=== PATIENT | female | born 1975 | race Two or more races ===

== ENCOUNTER 2020-06-15 19:14 | Emergency (ER) | payer MEDICAID ==
[2020-06-15] MEDS: Sodium Chloride 0.9% 10 ML Syringe FLUSH PRN (20:00)
[2020-06-15] MEDS: Sodium Chloride 0.9% 1,000 ML IV ONE (20:30)
--- NOTE | 2020-06-15 20:32 | EDM.PDOC ---
ED HPI GENERAL MEDICAL PROBLEM - General Stated Complaint: DIZZINESS Time Seen by Provider: 06/15/20 19:59 Source of Information: Reports: Patient History Limitations: Reports: No Limitations - History of Present Illness INITIAL COMMENTS - FREE TEXT/NARRATIVE: Patient presents with lightheadedness and heavy menstrual bleeding. She says it started 11 hours ago and she has saturated a tampon and a pad every hour since then; at least 10 so far. She is not on any blood thinners or anti-platelets. She has had prolonged menstrual bleeding previously and is scheduled for a hysterectomy in July at [facility]. She has never had acute heavy bleeding like today. She admits her fluid intake has been poor recently. She had a PE 12 years ago after a knee injury that left her mostly off her feet for 7 months. No problems since then. She was tested for clotting disorders but nothing found. - Related Data Allergies Allergy/AdvReac Type Severity Reaction Status Date / Time metoclopramide [From Reglan] Allergy Cannot Verified 06/15/20 20:34 Remember morphine Allergy Cannot Verified 06/15/20 20:34 Remember tetanus and diphtheria Allergy Cannot Verified 06/15/20 20:39 toxoids Remember tuberculin, purified protein Allergy Cannot Verified 06/15/20 20:39 deriva Remember ED ROS GENERAL - Review of Systems Review Of Systems: See Below Constitutional: Denies: Fever, Chills, Malaise, Weakness HEENT: Denies: Ear Pain, Throat Pain, Vision Change Respiratory: Denies: Shortness of Breath, Cough Cardiovascular: Reports: Lightheadedness. Denies: Chest Pain, Syncope Endocrine: Reports: Other (diabetes) GI/Abdominal: Denies: Abdominal Pain, Diarrhea, Nausea, Vomiting : Denies: Dysuria, Flank Pain Musculoskeletal: Reports: Neck Pain (chronic). Denies: Shoulder Pain, Arm Pain, Back Pain Skin: Denies: Cyanosis, Jaundice, Mottled, Pallor, Diaphoresis Neurological: Denies: Confusion, Dizziness, Headache, Seizure, Syncope, Trouble Speaking, Difficulty Walking Psychiatric: Reports: Anxiety (chronic). Denies: Agitation, Confusion Hematologic/Lymphatic: Denies: Anemia, Easy Bleeding ED EXAM, RENAL/ - Physical Exam Exam: See Below Exam Limited By: No Limitations General Appearance: Alert, WD/WN, No Apparent Distress Eye Exam: Bilateral Eye: EOMI, Normal Inspection, PERRL Ears: Normal External Exam, Hearing Grossly Normal Nose: Normal Inspection, No Blood Throat/Mouth: Normal Inspection, Normal Lips, Normal Voice, No Airway Compromise Head: Atraumatic, Normocephalic Neck: Normal Inspection Respiratory/Chest: No Respiratory Distress, Lungs Clear, Normal Breath Sounds, No Accessory Muscle Use Cardiovascular: Regular Rate, Rhythm, No Murmur GI/Abdominal: Normal Bowel Sounds, Soft, No Organomegaly, No Distention, Tender (mildly at mid-epigastrium). No: Guarding, Rigid Back Exam: Normal Inspection, Full Range of Motion. No: CVA Tenderness (L), CVA Tenderness (R) Extremities: Normal Inspection, Normal Range of Motion, Normal Capillary Refill (and pink palm creases) Neurological: Alert, Oriented, Normal Cognition, No Motor/Sensory Deficits Psychiatric: Normal Affect, Normal Mood Skin Exam: Warm, Dry, Intact, Normal Color, No Rash Course - Orders/Labs/Meds Orders: Active Orders 24 hr Category Date Time Status EKG Documentation Completion [RC] ASDIRECTED Care 06/15/20 19:47 Active Peripheral IV Care [RC] . DIRECTED Care 06/15/20 19:45 Active CULTURE URINE [RM] Stat Lab 06/15/20 19:55 Received Sodium Chloride 0.9% [Saline Flush] Med 06/15/20 19:45 Active 10 ml FLUSH Q8HR PRN Peripheral IV Insertion Adult [OM.PC] Routine Oth 06/15/20 19:45 Ordered EKG 12 Lead [EK] Stat Ther 06/15/20 19:47 Ordered Medication Orders Sodium Chloride (Saline Flush) 10 ml FLUSH Q8HR PRN PRN Reason: keep vein open Last Admin: 06/15/20 20:00 Dose: 10 ml Documented by: SHADY Labs: Laboratory Tests 06/15/20 06/15/20 06/15/20 Range/Units 19:55 19:55 19:55 WBC 6.04 (5.00-10.00) 10^3/uL RBC 4.39 (3.80-5.50) 10^6/uL Hgb 13.8 (12.0-16.0) g/dL Hct 40.1 (37.0-47.0) % MCV 91.3 (82.0-92.0) fL MCH 31.4 H (27.0-31.0) pg MCHC 34.4 (32.0-36.0) g/dL RDW 13.1 (11.5-14.5) % Plt Count 312 (150-400) 10^3/uL MPV 9.6 (7.4-10.4) fL Immature Gran % (Auto) 0.3 (0.0-5.0) % Neut % (Auto) 57.1 (50.0-70.0) % Lymph % (Auto) 32.9 (20.0-40.0) % [place] % (Auto) 7.9 (2.0-8.0) % Eos % (Auto) 1.5 (1.0-3.0) % Baso % (Auto) 0.3 (0.0-1.0) % Neut # (Auto) 3.44 (2.50-7.00) 10^3/uL Lymph # (Auto) 1.99 (1.00-4.00) 10^3/uL [place] # (Auto) 0.48 (0.10-0.80) 10^3/uL Eos # (Auto) 0.09 L (0.10-0.30) 10^3/uL Baso # (Auto) 0.02 (0.00-0.10) 10^3/uL Immature Gran # (Auto) 0.02 (0.00-0.50) 10^3/uL PT (9.2-11.2) SEC INR (0.9-1.1) APTT (22.8-31.4) SEC Sodium 139 (136-145) mmol/L Potassium 3.6 (3.5-5.1) mmol/L Chloride 104 (98-107) mmol/L Carbon Dioxide 23.0 (21.0-32.0) mmol/L Anion Gap 15.6 H (5-15) mmol/L BUN 11 (7-18) mg/dL Creatinine 0.55 (0.51-1.17) mg/dL Est Cr Clr Drug Dosing TNP Estimated GFR (MDRD) > 60 mL/min Glucose 97 (70-140) mg/dL Calcium 8.7 (8.7-10.3) mg/dL Total Bilirubin 0.2 (0.2-1.0) mg/dL AST 10 L (15-37) U/L ALT 23 (14-63) U/L Alkaline Phosphatase 56 (46-116) U/L Total Protein 7.9 (6.4-8.2) g/dL Albumin 3.74 (3.40-5.00) g/dL HCG, Qual (NEGATIVE) Specimen Type Urinvoid Urine Color Brown H (YELLOW) Urine Appearance Slightly cloudy H (CLEAR) Urine pH 5.5 (5.0-9.0) Ur Specific [place] 1.020 (1.005-1.030) Urine Protein 30 H (NEGATIVE) mg/dL Urine Glucose (UA) Negative (NEGATIVE) mg/dL Urine Ketones Negative (NEGATIVE) mg/dL Urine Occult Blood Large H (NEGATIVE) Urine Nitrite Negative (NEGATIVE) Urine Bilirubin Negative (NEGATIVE) Urine Urobilinogen 0.2 (0.2-1.0) E.U./dL Ur Leukocyte Esterase Trace H (NEGATIVE) Urine RBC Semi-packed (0-5) /HPF Urine WBC 5-10 H (0-5) /HPF Ur Epithelial Cells Few /LPF Urine Bacteria Rare (NONE TO FEW) /HPF Urine Mucus Rare H (NEGATIVE) /LPF 06/15/20 06/15/20 Range/Units 19:55 21:01 WBC (5.00-10.00) 10^3/uL RBC (3.80-5.50) 10^6/uL Hgb (12.0-16.0) g/dL Hct (37.0-47.0) % MCV (82.0-92.0) fL MCH (27.0-31.0) pg MCHC (32.0-36.0) g/dL RDW (11.5-14.5) % Plt Count (150-400) 10^3/uL MPV (7.4-10.4) fL Immature Gran % (Auto) (0.0-5.0) % Neut % (Auto) (50.0-70.0) % Lymph % (Auto) (20.0-40.0) % [place] % (Auto) (2.0-8.0) % Eos % (Auto) (1.0-3.0) % Baso % (Auto) (0.0-1.0) % Neut # (Auto) (2.50-7.00) 10^3/uL Lymph # (Auto) (1.00-4.00) 10^3/uL [place] # (Auto) (0.10-0.80) 10^3/uL Eos # (Auto) (0.10-0.30) 10^3/uL Baso # (Auto) (0.00-0.10) 10^3/uL Immature Gran # (Auto) (0.00-0.50) 10^3/uL PT 9.9 (9.2-11.2) SEC INR 1.0 (0.9-1.1) APTT 26.0 (22.8-31.4) SEC Sodium (136-145) mmol/L Potassium (3.5-5.1) mmol/L Chloride (98-107) mmol/L Carbon Dioxide (21.0-32.0) mmol/L Anion Gap (5-15) mmol/L BUN (7-18) mg/dL Creatinine (0.51-1.17) mg/dL Est Cr Clr Drug Dosing Estimated GFR (MDRD) mL/min Glucose (70-140) mg/dL Calcium (8.7-10.3) mg/dL Total Bilirubin (0.2-1.0) mg/dL AST (15-37) U/L ALT (14-63) U/L Alkaline Phosphatase (46-116) U/L Total Protein (6.4-8.2) g/dL Albumin (3.40-5.00) g/dL HCG, Qual Negative (NEGATIVE) Specimen Type Urine Color (YELLOW) Urine Appearance (CLEAR) Urine pH (5.0-9.0) Ur Specific [place] (1.005-1.030) Urine Protein (NEGATIVE) mg/dL Urine Glucose (UA) (NEGATIVE) mg/dL Urine Ketones (NEGATIVE) mg/dL Urine Occult Blood (NEGATIVE) Urine Nitrite (NEGATIVE) Urine Bilirubin (NEGATIVE) Urine Urobilinogen (0.2-1.0) E.U./dL Ur Leukocyte Esterase (NEGATIVE) Urine RBC (0-5) /HPF Urine WBC (0-5) /HPF Ur Epithelial Cells /LPF Urine Bacteria (NONE TO FEW) /HPF Urine Mucus (NEGATIVE) /LPF Meds: Medications Generic Name Dose Route Start Last Admin Trade Name Jet PRN Reason Stop Dose Admin Sodium Chloride 10 ml 06/15/20 19:45 06/15/20 20:00 Saline Flush FLUSH 10 ml Q8HR PRN Administration keep vein open Discontinued Medications Generic Name Dose Route Start Last Admin Trade Name Jet PRN Reason Stop Dose Admin Acetaminophen 1,000 mg 06/15/20 20:57 06/15/20 21:19 Tylenol Extra Strength PO 06/15/20 20:58 1,000 mg ONETIME ONE Administration Sodium Chloride 1,000 mls @ 999 mls/hr 06/15/20 19:47 06/15/20 20:30 Normal Saline IV 06/15/20 20:47 999 mls/hr .BOLUS ONE Administration - Re-Assessments/Exams Free Text/Narrative Re-Assessment/Exam: 06/15/20 22:26 Hg is 13.8, PT/PTT are normal, HCG is negative. Gave a liter of NS IV. Discussed findings with her and the possibility of needing to see Gynecology emergently. Discussed case with Dr. Jensen, TOOL ROOM MACHINIST at [facility] who advised Provera 10 mg po qd for 10 days. Other options are TXA or OCP but have higher risk of clotting. He also advised patient calling tomorrow to see if she can get her consult/surgery sooner. Discussed plan with patient. She is hesitant to take Provera if it has even a small risk of clots. She will consider it and likely start tomorrow if the bleeding hasn't slowed down by morning. I gave her an Rx for Provera 10 mg #10, 1 po qd. Feeling less lightheaded after the fluids. Discharged to home in stable condition. Departure - Departure Time of Disposition: 22:21 Disposition: Home, Self-Care 01 Condition: Good Clinical Impression: Heavy menstrual bleeding Qualifiers: Menorrhagia type: with regular cycle Qualified Code(s): N92.0 - Excessive and frequent menstruation with regular cycle - Discharge Information Instructions: Menorrhagia, [id number] Referrals: Carrie Ayala, CARDIAC SPECIALIST [Primary Care Provider] - Additional Instructions: Take the Provera as directed if you are comfortable with it. Tomorrow morning call the TOOL ROOM MACHINIST [facility] in [place] at [phone] and tell them that you were in ER tonight with heavy vaginal bleeding. Dr. Jensen recommended calling to see if appointment could be sooner. Drink 8 cups of water daily. See your PCP or return to ER as needed if this worsens or persists. - My Orders Last 24 Hours: My Active Orders 06/15/20 19:45 Peripheral IV Care [RC] . DIRECTED Sodium Chloride 0.9% [Saline Flush] 10 ml FLUSH Q8HR PRN Peripheral IV Insertion Adult [OM.PC] Routine 06/15/20 19:47 EKG Documentation Completion [RC] ASDIRECTED EKG 12 Lead [EK] Stat 06/15/20 19:55 CULTURE URINE [RM] Stat - Assessment/Plan Last 24 Hours: My Active Orders 06/15/20 19:45 Peripheral IV Care [RC] . DIRECTED Sodium Chloride 0.9% [Saline Flush] 10 ml FLUSH Q8HR PRN Peripheral IV Insertion Adult [OM.PC] Routine 06/15/20 19:47 EKG Documentation Completion [RC] ASDIRECTED EKG 12 Lead [EK] Stat 06/15/20 19:55 CULTURE URINE [RM] Stat
[2020-06-15] MEDS: Acetaminophen 500 MG Tab PO ONE (21:19)
[2020-06-15 21:27] LABS: ANION GAP 15.6 mmol/L (5-15); CHLORIDE,CL 104 mmol/L (98-107); SODIUM,NA 139 mmol/L (136-145)
== END 2020-06-15 22:54 | disposition home or self-care (01) ==
LOC: KA.ED 19:14
DX: N92.0 Excessive and frequent menstruation with regular cycle (principal); Z88.8 Allergy status to other drugs, medicaments and biological substances; Z88.5 Allergy status to narcotic agent; Z88.7 Allergy status to serum and vaccine
CPT/HCPCS: 36415; 80053; 81001; 84703; 85025; 85610; 85730; 87086; 93005; 99284; 99284-25; A9270-GY; J7030

== ENCOUNTER 2020-10-31 00:27 | Emergency (ER) | payer MEDICAID ==
[2020-10-31] MEDS ORDERED: Sodium Chloride 0.9% 10 ML Syringe FLUSH PRN (00:54)
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
[2020-10-31] MEDS ORDERED: Ketorolac 30 MG/ML SDV IVPUSH ONE (01:08)
[2020-10-31 01:25] LABS: ANION GAP 14.9 mmol/L (5-15); CHLORIDE,CL 102 mmol/L (98-107); SODIUM,NA 136 mmol/L (136-145)
--- NOTE | 2020-10-31 07:29 | CR ---
[id number] RAD/RAD Chest PA And Lateral EXAM: RAD Chest PA And Lateral INDICATION: PAIN COMPARISON: None. DISCUSSION/IMPRESSION: Cardiomediastinal silhouette is normal in size and contour. Lungs are clear. No pleural effusion or pneumothorax. Jose Miguel Diaz MD 10/31/20 0728 Thank you for allowing us to participate in the care of your patient.
== END 2020-10-31 01:40 | disposition home or self-care (01) ==
LOC: KA.ED 00:27
DX: R07.89 Other chest pain (principal); E11.9 Type 2 diabetes mellitus without complications; E66.9 Obesity, unspecified; Z68.34 Body mass index [BMI] 34.0-34.9, adult; Z88.8 Allergy status to other drugs, medicaments and biological substances; Z88.5 Allergy status to narcotic agent; Z88.7 Allergy status to serum and vaccine; Z79.899 Other long term (current) drug therapy
CPT/HCPCS: 71046; 80053; 82550; 82553; 83690; 84484; 84703; 85025; 85379; 96374; 99285; J1885; 93005; 99284

== ENCOUNTER 2020-11-11 11:42 | Day surgery (SDC) | payer MEDICAID ==
[2020-11-11] MEDS ORDERED: Sodium Chloride 0.9% 10 ML Syringe FLUSH PRN (12:00)
[2020-11-11] MEDS: Lactated Ringers 1,000 ML IV SCH (13:23)
--- NOTE | 2020-11-11 13:49 | PCM.PN ---
- General Info Date of Service: 11/11/20 - Review of Systems Systems Review Comment:: 45-year-old female referred for EGD and colonoscopy. She has a history of GERD as well as a family history of Tovar's esophagus. She also has been noticing a change in her bowel pattern recently with less frequent stools although they have remained soft as they historically are she also has had at least 2 episodes of hematochezia in the last 3 years. Patient also relates a family history of colon polyps in her father. I have discussed the proposed EGD and colonoscopy with the patient. Risks such as but not limited to bleeding and GI injury reviewed. She agrees to proceed. Her recent history and physical is reviewed and no significant changes are noted. - Patient Data Vitals - Most Recent: Last Vital Signs Temp 96.7 F L 11/11/20 12:21 Pulse 70 11/11/20 12:21 Resp 17 11/11/20 12:21 BP 106/71 11/11/20 12:21 Pulse Ox 97 11/11/20 12:21 Weight - Most Recent: 99.79 kg Lab Results Last 24 Hours: Laboratory Results - last 24 hr 11/11/20 Range/Units 12:48 Urine HCG, Qual Negative (NEGATIVE) Med Orders - Current: Current Medications Lactated Ringer's (Ringers, Lactated) 1,000 mls @ 50 mls/hr IV ASDIRECTED [facility] Last Admin: 11/11/20 13:23 Dose: 50 mls/hr Documented by: Sodium Chloride (Sodium Chloride 0.9% 10 Ml Syringe) 10 ml FLUSH Q8HR PRN PRN Reason: keep vein open - Patient Data Lab Results Last 24 hrs: Laboratory Results - last 24 hr 11/11/20 Range/Units 12:48 Urine HCG, Qual Negative (NEGATIVE) Sepsis Event Note - Focused Exam Vital Signs: Vital Signs Temp Pulse Resp BP Pulse Ox 11/11/20 12:21 96.7 F L 70 17 106/71 97 - Problem List Review Problem List Initiated/Reviewed/Updated: Yes - My Orders Last 24 Hours: My Active Orders 11/10/20 15:47 Resuscitation Status Routine 11/11/20 Breakfast Nothing Per Oral Diet [DIET] 11/11/20 12:00 Patient to Empty Bladder [RC] ASDIRECTED Peripheral IV Care [RC] . DIRECTED Lactated Ringers [Ringers, Lactated] 1,000 ml IV ASDIRECTED Sodium Chloride 0.9% [Saline Flush] 10 ml FLUSH Q8HR PRN Peripheral IV Insertion Adult [OM.PC] Routine 11/11/20 13:00 Verify Patient Consent Obtain [RC] ASDIRECTED - Assessment Assessment:: GERD Change in bowel habits Family history of colon polyps - Plan Plan:: EGD and colonoscopy
[2020-11-11] MEDS ORDERED: Propofol 200 MG/20 ML SDV ONE (13:59)
[2020-11-11] MEDS ORDERED: Midazolam 1 MG/ML 2 ML SDV ONE (13:59)
[2020-11-11] MEDS ORDERED: Lidocaine 2% 5 ML SDV ONE (14:00)
--- NOTE | 2020-11-11 14:58 | PCM.OPNOTE ---
- General Post-Op/Procedure Note Date of Surgery/Procedure: 11/11/20 Operative Procedure(s): EGD with Biopsy. Colonoscopy with Polypectomy and Biopsy Findings: Normal Appearing EGD Multiple Colon Polyps Moderate External Hemorrhoids Pre Op Diagnosis: GERD. Change in Bowel Habits Post-Op Diagnosis: Normal EGD. Colon Polyps. Hemorrhoids Anesthesia Technique: MAC Primary Surgeon: Eric Merchant Pathology: Biopsies of GE Jct, Antrum, Duodenum and Ileum, Colon and colon polyps EBL in mLs: 3 Complications: None Condition: Good
--- NOTE | 2020-11-12 01:54 | OR ---
DATE OF SURGERY: 11/11/2020 SURGEON: Eric Merchant MD PREOPERATIVE DIAGNOSIS: Gastroesophageal reflux disease and changes in bowel habits. POSTOPERATIVE DIAGNOSIS: Normal upper endoscopy, colon polyps, external hemorrhoids. OPERATION PERFORMED: Esophagogastroduodenoscopy with biopsy and colonoscopy with polypectomy and biopsy. INDICATIONS FOR SURGERY: This 45-year-old female has a longstanding history of acid reflux symptoms. She has also recently developed a change in her bowel pattern and has had some remote episodes of hematochezia in the past. Her father also has a known history of colon polyps. FINDINGS: On upper endoscopy, the lining of the esophagus, stomach, and the duodenum to the 4th portion appears normal. No ulcerations or visible signs of inflammation were seen. The Z-line at the GE junction is distinct without visible signs of inflammation and without any ulceration. In the patient's colon, she has 2 pedunculated polyps, a 1.5 cm polyp at the 30 cm level in the sigmoid colon and a 1 cm polyp at the 40 cm level in the descending colon. The patient's colon and terminal ileum otherwise appear normal. She does have moderate-sized external hemorrhoids. DESCRIPTION OF PROCEDURE: The patient was taken to the operating room. She was given intravenous sedation and with her in the left lateral decubitus position, the Olympus gastroscope was advanced through a mouth guard into the oral cavity. Under direct visualization, the scope was then carefully advanced through the oropharynx and into the esophagus and then down through the stomach and on into the duodenum where examination to the 4th portion is performed. The duodenum was carefully examined and appeared normal. Because of the patient's symptoms, random biopsies of the duodenum were taken. The scope was withdrawn back into the stomach where full examination including retroflexed examination of the fundus is performed. Random biopsies of the antrum were taken to rule out H pylori. The GE junction and esophagus were then re-examined. Because of the patient's acid reflux symptoms, biopsies of the GE junction were taken. The scope was then removed and attention was turned to colonoscopy. Digital rectal exam is performed. External hemorrhoids are identified, but no rectal masses are noted. The Olympus colonoscope was inserted into the rectum and retroflexed examination of the rectal canal is performed. The scope was advanced to the 30 cm level where the larger of the 2 polyps is identified and it is removed with a cautery snare and retrieved into a polyp trap. The scope was then advanced without difficulty through the entire length of the colon until cecum is reached. Cecal acquisition is confirmed by noting the normal internal cecal anatomy including the appendiceal orifice and the ileocecal valve. The ileocecal valve was cannulated and the terminal ileum examined and appeared normal. Random biopsies of the terminal ileum were taken. The scope was then slowly withdrawn sequentially re-examining the colonic segments. During withdrawal of the scope, random biopsies of the right and left colon were taken. During scope withdrawal, the polyp in the descending colon was identified. This is removed with a cautery snare and retrieved into a polyp trap. After the colon and rectum had been fully examined and with no sign of any complication, the scope was removed and the patient was taken from the operating room in satisfactory. ESTIMATED BLOOD LOSS: 2 mL. COMPLICATIONS: None. PROGNOSIS: Good. /[id number]/MODL MTDD
== END 2020-11-11 16:30 | disposition home or self-care (01) ==
LOC: KA.SDS 11:42
PROVIDERS: ATTEND Surgery
DX: D12.5 Benign neoplasm of sigmoid colon (principal); D12.4 Benign neoplasm of descending colon; K64.4 Residual hemorrhoidal skin tags; K31.89 Other diseases of stomach and duodenum; R00.2 Palpitations; K21.00 Gastro-esophageal reflux disease with esophagitis, without bleeding; F17.210 Nicotine dependence, cigarettes, uncomplicated; Z88.5 Allergy status to narcotic agent; Z88.8 Allergy status to other drugs, medicaments and biological substances; Z88.7 Allergy status to serum and vaccine; Z79.899 Other long term (current) drug therapy
CPT/HCPCS: 81025; J2250; J2704; J7120

== ENCOUNTER 2021-02-21 03:04 | Emergency (ER) | payer MEDICAID ==
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
[2021-02-21 04:17] LABS: CHLORIDE,CL 103 mmol/L (98-107); SODIUM,NA 139 mmol/L (136-145)
--- NOTE | 2021-02-21 09:25 | CT ---
[id number] CT/CT Abdomen Pelvis WO IV Exam: CT Abdomen Pelvis WO IV Clinical Data: REASON HYSTERECTOMY. BLEEDING COMPARISON: CORRELATION IS MADE WITH MAY 02, 2002 FINDINGS: A small amount of fluid is seen in the pelvis There are expected surgical changes The uterus has been removed The appendix is normal IV contrast was not used The liver and spleen, kidneys and adrenals, pancreas and aorta are unremarkable The gallbladder has also been removed IMPRESSION: EXPECTED SURGICAL CHANGES Trey Vega MD 02/21/21 0924 Thank you for allowing us to participate in the care of your patient.
== END 2021-02-21 06:41 | disposition home or self-care (01) ==
LOC: KA.ED 03:04 → SUPCPDRO 03:04 → KA.ED 06:41
DX: N99.820 Postprocedural hemorrhage of a genitourinary system organ or structure following a genitourinary system procedure (principal); D64.89 Other specified anemias; R18.8 Other ascites; E11.9 Type 2 diabetes mellitus without complications; E66.9 Obesity, unspecified; Z86.711 Personal history of pulmonary embolism; Z90.710 Acquired absence of both cervix and uterus; Z88.8 Allergy status to other drugs, medicaments and biological substances; Z88.5 Allergy status to narcotic agent; Z88.7 Allergy status to serum and vaccine; Z79.899 Other long term (current) drug therapy
CPT/HCPCS: 36415; 74176; 80053; 85025; 99284; 99284-25

== ENCOUNTER 2021-03-23 20:06 | Emergency (ER) | payer MEDICAID ==
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
[2021-03-23] MEDS: Meclizine 25 MG Tab PO ONE ×2 (20:50→20:51)
== END 2021-03-23 21:05 | disposition home or self-care (01) ==
LOC: KA.ED 20:06
DX: H81.12 Benign paroxysmal vertigo, left ear (principal); E11.9 Type 2 diabetes mellitus without complications; E66.9 Obesity, unspecified; Z88.5 Allergy status to narcotic agent; Z88.7 Allergy status to serum and vaccine; Z88.8 Allergy status to other drugs, medicaments and biological substances; Z68.30 Body mass index [BMI] 30.0-30.9, adult; Z20.822 Contact with and (suspected) exposure to COVID-19
CPT/HCPCS: 99283; 99284; A9270-GY; U0002

== ENCOUNTER 2021-05-31 03:40 | Emergency (ER) | payer MEDICAID ==
[2021-05-31] MEDS: Ketorolac 60 MG/2 ML SDV IM ONE (03:53)
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
== END 2021-05-31 05:20 | disposition home or self-care (01) ==
LOC: KA.ED 03:40
DX: M54.12 Radiculopathy, cervical region (principal); E11.9 Type 2 diabetes mellitus without complications; E66.9 Obesity, unspecified; Z68.36 Body mass index [BMI] 36.0-36.9, adult; Z86.16 Personal history of COVID-19; Z79.899 Other long term (current) drug therapy; Z88.5 Allergy status to narcotic agent; Z88.8 Allergy status to other drugs, medicaments and biological substances; Z72.0 Tobacco use
CPT/HCPCS: 96372; 99283; 99284; J1885

== ENCOUNTER 2021-06-13 23:10 | Emergency (ER) | payer MEDICAID ==
[2021-06-13] MEDS ORDERED: Sodium Chloride 0.9% 10 ML Syringe FLUSH PRN (23:30)
[2021-06-13] MEDS: Ketorolac 30 MG/ML SDV IVPUSH ONE (23:40)
[2021-06-13] MEDS: methylPREDNISolone Sodium Succinate 125 MG/2 ML SDV IVPUSH ONE (23:52)
[2021-06-14] MEDS: traMADol 50 MG Tab PO ONE (00:28)
== END 2021-06-14 00:25 | disposition home or self-care (01) ==
LOC: KA.ED 23:10
DX: M54.12 Radiculopathy, cervical region (principal); E11.9 Type 2 diabetes mellitus without complications; E66.9 Obesity, unspecified; Z68.37 Body mass index [BMI] 37.0-37.9, adult; Z86.16 Personal history of COVID-19; Z88.5 Allergy status to narcotic agent; Z88.7 Allergy status to serum and vaccine; Z88.8 Allergy status to other drugs, medicaments and biological substances; Z79.899 Other long term (current) drug therapy
CPT/HCPCS: 96374; 96375; 99283; 99283-25; A9270-GY; J1885; J3360

== ENCOUNTER 2021-06-19 23:00 | Emergency (ER) | payer MEDICAID ==
[2021-06-19] MEDS: Gabapentin 100 MG Cap PO ONE (23:47)
[2021-06-19] MEDS: traMADol 50 MG Tab PO ONE (23:47)
[2021-06-19] MEDS: Ketorolac 30 MG/ML SDV IM ONE (23:47)
== END 2021-06-19 23:59 | disposition home or self-care (01) ==
LOC: KA.ED 23:00
DX: M54.12 Radiculopathy, cervical region (principal); E11.9 Type 2 diabetes mellitus without complications; E66.9 Obesity, unspecified; Z68.35 Body mass index [BMI] 35.0-35.9, adult; Z88.7 Allergy status to serum and vaccine; Z88.5 Allergy status to narcotic agent; Z88.8 Allergy status to other drugs, medicaments and biological substances
CPT/HCPCS: 96372; 99283; A9270; J1885